=== PATIENT | female | born 2000 | race Caucasian/White ===

== ENCOUNTER 2021-08-29 23:01 | Emergency (ER) | payer SELFPAY ==
[2021-08-29 23:12] VITALS: BP 130/92; PULSE 100; RESP 16; TEMP 37; O2SAT 98; BMI 23.8
--- NOTE | 2021-08-29 23:41 | ED.ALCOHOL ---
HPI - Alcohol General Chief Complaint: ETOH/Substance Use Stated Complaint: etoh Time Seen by Provider: 08/29/21 23:41 Source: patient and EMS Mode of arrival: EMS History of Present Illness HPI narrative: 20-year-old female arrives via EMS, with significant alcohol intoxication and EMS reports that she was out with her boyfriend when he was pulled over and the police told her she could either come to the ER or go to senior care. Patient denies any current complaints. Review of Systems Review of Systems: Pertinent positives and negatives as stated in HPI 10 point review of systems is otherwise negative. PMFSH Past Medical History Source: nursing notes reviewed Social History Social History Advance Directives: No Advance Directives Information Provided: Yes Physical Exam Vital Signs: Vital Signs: Last Vital Signs Temp 98.6 F 08/29/21 23:12 Pulse 100 08/29/21 23:12 Resp 16 08/29/21 23:12 BP 130/92 H 08/29/21 23:12 Pulse Ox 98 08/29/21 23:12 BMI result Body Mass Index 23.8 VITAL SIGNS: Reviewed. GENERAL: Smells of alcohol, Well developed, well nourished, in no acute distress. HEAD: Normocephalic/atraumatic EYES: PERRLA, EOMI LUNGS: Normal breath sounds. SpO2<98> CARDIOVASCULAR: Regular rate and rhythm without noted murmurs ABDOMEN: Soft, non-tender, non-distended with bowel sounds. NEUROLOGIC: Drowsy but easily aroused and oriented x 4. Course Course Course Narrative: 20-year-old female with a history and clinical presentation consistent with significant alcohol intoxication but otherwise clinically stable and patient does have a safe ride home with family member and will be discharged. Discharge Plan Discharge Clinical Impression: Alcoholic intoxication Patient Disposition: Home, Self-Care Instructions: Alcohol Intoxication (ED) Additional Instructions: Stop drinking so much alcohol. Interventions: ED Discharge Assessment Last Done: 08/29/21 23:55 Discharge Date/Time: 08/30/21 00:13
--- NOTE | 2021-08-29 23:54 | PC.NURSE ---
PATIENT IS AROUSABLE TO VOICE. LAUGHING AND TAUNTING STAFF. STICKING HER TONGUE OUT AND WAVING HER HANDS. FAMILY MEMBER IS HERE FOR A SOBER RIDE. CONTACTING MOTHER WELL. WHO IS ANTICIPATING PATIENT TO RETURN HOME WITH OTHER FAMILY MEMBER. ABLE TO STAND AND PIVOT TO A WHEELCHAIR WITHOUT DIFFICULTY. FAMILY IS AWARE PATIENT IS INTOXICATED AND TO WATCH PATIENT TONIGHT AND RETURN TO HOSPTIAL IF OTHER COMPLAINTS ARISE. BOYFRIEND WHO WAS WITH PATIENT ALSO GETTING RIDE WITH SOBER FAMILY MEMBER.
== END 2021-08-30 00:13 | disposition home or self-care (01) ==
LOC: HO.ED 23:43
PROVIDERS: Emergency Provider Student in an Organized Health Care Education/Training Program
DX: F10.920 Alcohol use, unspecified with intoxication, uncomplicated (principal); Y90.9 Presence of alcohol in blood, level not specified
CPT/HCPCS: 99284